=== PATIENT | female | born 2000 | race Caucasian/White ===

== ENCOUNTER 2022-03-26 14:08 | Emergency (ER) | payer OTHER ==
[~2022-03-26] VITALS: Ht 154.9 cm; Wt 58.8 kg
[2022-03-26 14:09] VITALS: BP 119/81
== END 2022-03-26 16:11 | disposition home or self-care (01) ==
LOC: M ED 14:08
DX: J02.9 Acute pharyngitis, unspecified (principal); B34.9 Viral infection, unspecified; M67.432 Ganglion, left wrist